=== PATIENT | male | born 1935 | race African-American/Black ===

== ENCOUNTER 2018-02-21 04:08 | Observation (INO) ==
--- NOTE | 2018-02-21 05:51 | ED ---
HPI General Chief Complaint: Seizure Stated Complaint: poss seizure Time Seen by Provider: 02/21/18 05:45 Source: patient and family Mode of arrival: EMS Limitations: no limitations History of Present Illness HPI Narrative: 83-year-old male visiting the area the emergency department by EMS transport from local [facility] where family witnessed him to have a seizure generalized tonic-clonic for approximately 2-3 minutes. Patient is awake at this time reports that he had a remote seizure approximately 10-15 years ago but was not placed on any seizure medications. Patient has heart disease and hypertension denies diabetes. Patient denies any recent illness or fall. Patient reportedly was at the hotel room and grandson noticed him having generalized tonic-clonic seizure activity while he had been sleeping on a nearby couch. There is no bladder or bowel incontinence and no tongue trauma. Patient here voices no concerns or complaints. No headache no visual disturbance no neck pain no chest pain no palpitations no shortness of breath no nausea no vomiting no abdominal pain no flank pain no diarrhea no urinary symptoms and no joint pain or swelling denies any injury. Patient states he has felt well and has not been ill. Patient has not missed any of his blood pressure medications. Patient denies diabetes. MD complaint: seizure Onset (ago): minute(s) Description of Episode: loss of consciousness and tonic-clonic movement Duration of episode: 3 -: minutes(s) Witnessed: yes - by bystander Trauma: No Seizure History: known seizure disorder (x1 15 years ago) Place: other ([facility]) Possible Precipitating Event: none (none known) Associated symptoms: denies other symptoms Treatments prior to arrival: none Related Data Home Medications Medication Instructions Recorded Confirmed No Known Home Medications 02/21/18 02/21/18 Allergies Allergy/AdvReac Type Severity Reaction Status Date / Time No Known Allergies Allergy Unverified 02/21/18 05:46 Review of Systems ROS: all other systems reviewed are negative PMFSH History History Provided By: Patient (CAD [place] hypertension) Medical History Medical History Gout (Acute) Seizure (Acute) Social History Social History Substance History: No History of Abuse Smoking Status: Former smoker Tobacco Type: Cigarettes How Often Do You Have a Drink Containing Alcohol: Monthly or less Recent Travel in [facility] within the Last 8 Weeks: No Recent Out of Country Travel within the Last 8 Weeks: No Immunization History Tetanus Immunization: >5 Years Hx Influenza Vaccine This Season: No Exam Narrative Exam Narrative: GENERAL: Well-developed well-nourished male in no acute distress no respiratory distress; GCS 15 NIHSS:0 SKIN: Focused skin assessment warm/dry. HEAD: Atraumatic. Normocephalic. EYES: Pupils equal and round. No scleral icterus. No injection or drainage. ENT: No nasal bleeding or discharge. Mucous membranes pink and moist. NECK: Trachea midline. No JVD. CARDIOVASCULAR: Regular rate and rhythm. No murmur appreciated. RESPIRATORY: No accessory muscle use. Clear to auscultation. Breath sounds equal bilaterally. GASTROINTESTINAL: Abdomen soft, non-tender, nondistended. Hepatic and splenic margins not palpable. MUSCULOSKELETAL: No obvious deformities. No clubbing. No cyanosis. No edema. NEUROLOGICAL: Awake and alert. No obvious cranial nerve deficits. Motor grossly within normal limits. Normal speech. PSYCHIATRIC: Appropriate mood and affect; insight and judgment normal. Course Initial Documented Vital Signs Temperature 97.8 F 02/21/18 05:22 Pulse Rate 66 02/21/18 05:22 Respiratory Rate 17 02/21/18 05:22 Blood Pressure 177/86 H 02/21/18 05:22 Pulse Oximetry 100 02/21/18 05:22 Last Documented Vital Signs Temperature 97.8 F 02/21/18 05:22 Pulse Rate 61 02/21/18 08:25 Respiratory Rate 16 02/21/18 08:25 Blood Pressure 202/105 H 02/21/18 08:25 Pulse Oximetry 99 02/21/18 08:25 Medical Decision Making [facility] Narrative Medical decision making narrative: 83-year-old male with witnessed generalized tonic-clonic seizure just prior to arrival to the emergency department approximately 2-3 minutes in duration per family that witnessed the event currently patient GCS is 15 reports remote history of seizure 1 approximately 15 years ago. IV access obtained patient placed on cardiac exercise physiologist with continuous pulse oximetry imaging study and labs ordered. Discussed with DR Bautista will accept to OBS Medical Screen Exam Complete: Yes Emergency Medical Condition: Yes Lab Data Result diagrams: 02/21/18 06:11 02/21/18 06:11 Lab Results 02/21/18 02/21/18 02/21/18 Range/Units 06:11 06:11 07:07 WBC 5.2 (4.0-11.0) th/mm3 RBC 4.44 L (4.50-5.90) mil/mm3 Hgb 12.9 L (13.0-17.0) gm/dL Hct 37.9 L (39.0-51.0) % MCV 85.3 (80.0-100.0) fL MCH 29.0 (27.0-34.0) pg MCHC 34.1 (32.0-36.0) % RDW 14.5 (11.6-17.2) % Plt Count 179 (150-450) th/mm3 MPV 9.4 (7.0-11.0) fL Neut % (Auto) 73.3 H (16.0-70.0) % Lymph % (Auto) 18.2 (9.0-44.0) % Baker % (Auto) 5.0 (0.0-8.0) % Eos % (Auto) 2.0 (0.0-4.0) % Baso % (Auto) 1.5 (0.0-2.0) % Neut # (Auto) 3.8 (1.8-7.7) th/mm3 Lymph # (Auto) 1.0 (1.0-4.8) th/mm3 Baker # (Auto) 0.3 (0.0-0.9) th/mm3 Eos # (Auto) 0.1 (0.0-0.4) th/mm3 Baso # (Auto) 0.1 (0.0-0.2) th/mm3 WBC Differential . Differential Comment Auto diff final Sodium 144 (136-145) meq/L Potassium 4.4 (3.5-5.1) meq/L Chloride 108 H (98-107) meq/L Carbon Dioxide 26.7 (21.0-32.0) meq/L Anion Gap 9 (5-15) meq/L BUN 27 H (7-18) mg/dL Creatinine 1.89 H (0.60-1.30) mg/dL Estimated GFR 34 L (>89) mL/min Random Glucose 103 (74-106) mg/dL Calcium 8.3 L (8.5-10.1) mg/dL Magnesium 2.6 H (1.5-2.5) mg/dL Total Bilirubin 0.3 (0.2-1.0) mg/dL AST 12 L (15-37) U/L ALT 11 L (12-78) U/L Alkaline Phosphatase 96 (45-117) U/L Total Protein 7.6 (6.4-8.2) g/dL Albumin 3.5 (3.4-5.0) g/dL Urine Color Straw (Yellw/Straw) Urine Clarity Clear (Clear) Urine pH 7.0 (5.0-8.5) Ur Specific [place] 1.005 (1.002-1.035) Urine Protein Negative (Neg-Trace) mg/dL Urine Glucose (UA) Negative (Negative) mg/dL Urine Ketones Negative (Negative) mg/dL Urine Occult Blood Negative (Negative) Urine Nitrate Negative (Negative) Urine Bilirubin Negative (Negative) Urine Urobilinogen Less than 2 (Less than 2) mg/dL Ur Leukocyte Esterase Negative (Negative) Urine RBC 1 (0-3) /hpf Urine WBC Less than 1 (0-5) /hpf Urine Mucus Few H (Occasional) /lpf Ur Microscopic Review Not Reportable Serum Alcohol Less than 3 (0-5) mg/dL Imaging Data Radiologist's impression: Head CT 02/21/18 05:46 CONCLUSION: 1. No acute intracranial abnormality is identified. 2. Encephalomalacia in the right frontoparietal high convexity likely related to old ischemic event. There is generalized cerebral atrophy. . ECG Data EKG Prior to Arrival: Yes Interpretation: EKG sinus bradycardia rate 59 ventricular bigeminy interventricular conduction delay no acute ST elevation or injury pattern noted. Discharge Plan Discharge Disposition Patient Disposition: 30 Still Patient Discharge Condition Condition: Stable Discharge Details Diagnosis: Seizure Physicians Team ED Provider: Renetta Kevin Primary Care Provider: UNKNOWN, Rxs /Orders / Referrals /Forms Prescriptions: No Action No Known Home Medications RF: 0 Discharge Interventions Interventions: Vital Signs Last Done: 02/21/18 08:25 Status ED Status: With Doctor
[2018-02-21 06:31] LABS: Baso # (Auto) 0.1 th/mm3 (0.0-0.2); Baso % (Auto) 1.5 % (0.0-2.0); Eos # (Auto) 0.1 th/mm3 (0.0-0.4); Hematocrit 37.9 % (39.0-51.0); Hemoglobin 12.9 gm/dL (13.0-17.0); Lymph % (Auto) 18.2 % (9.0-44.0); Mean Corpuscular HGB Conc 34.1 % (32.0-36.0); Mean Corpuscular Volume 85.3 fL (80.0-100.0); Mean Platelet Volume 9.4 fL (7.0-11.0); Mono # (Auto) 0.3 th/mm3 (0.0-0.9); Neut # (Auto) 3.8 th/mm3 (1.8-7.7); Neut % (Auto) 73.3 % (16.0-70.0); Platelet Count 179 th/mm3 (150-450); Red Blood Count 4.44 mil/mm3 (4.50-5.90); Red Cell Distribution Width 14.5 % (11.6-17.2); White Blood Count 5.2 th/mm3 (4.0-11.0)
--- NOTE | 2018-02-21 06:44 | CT ---
EXAM DATE: 02/21/2018 6:38 AM EDT AGE/SEX: 83 years / Male INDICATIONS: Seizure. CLINICAL DATA: This is the patient's initial encounter. Patient reports that signs and symptoms have been present for 1 day and indicates a pain score of 0/10. MEDICAL/SURGICAL HISTORY: Seizures. None. RADIATION DOSE: 56.35 CTDI (mGy) COMPARISON: No prior exams available for comparison. TECHNIQUE: CT of the head without contrast. Using automated exposure control and adjustment of the mA and/or kV according to patient size, radiation dose was kept as low as reasonably achievable to ob tain optimal diagnostic quality images. DICOM format image data is available electronically for revi ew and comparison. FINDINGS: Cerebrum: There is mild generalized atrophy and ventricles are normal given the degree of atrophy. M ild periventricular white matter change is present. Encephalomalacia is present at the right frontopa rietal high convexity. No midline shift, mass lesion, hemorrhage or acute infarction. No extraaxial fluid collections are seen. Posterior Fossa: The cerebellum and brainstem demonstrate no acute abnormality. The 4th ventricle is midline. The cerebellopontine angle is within normal limits. Extracranial: The visualized sinuses are clear. Skull: The calvaria is intact. No skull fracture. CONCLUSION: 1. No acute intracranial abnormality is identified. 2. Encephalomalacia in the right frontoparietal high convexity likely related to old ischemic event. There is generalized cerebral atrophy. . Electronically signed by: Nolberto Mccarthy MD 02/21/2018 6:43 AM EDT
[2018-02-21 06:49] LABS: Alanine Aminotransferase 11 U/L (12-78); Albumin 3.5 g/dL (3.4-5.0); Anion Gap 9 meq/L (5-15); Aspartate Aminotransferase 12 U/L (15-37); Blood Urea Nitrogen 27 mg/dL (7-18); Calcium 8.3 mg/dL (8.5-10.1); Carbon Dioxide 26.7 meq/L (21.0-32.0); Chloride 108 meq/L (98-107); Glomerular Filtration Rate 34 mL/min (>89); Glucose,Random 103 mg/dL (74-106); Magnesium 2.6 mg/dL (1.5-2.5); Potassium 4.4 meq/L (3.5-5.1); Sodium 144 meq/L (136-145)
[2018-02-21 06:51] LABS: Alkaline Phosphatase 96 U/L (45-117); Total Protein 7.6 g/dL (6.4-8.2)
[2018-02-21 07:24] LABS: Bilirubin,Urine Negative (Negative); Color,Urine Straw (Yellw/Straw); Glucose,Urine (UA) Negative (Negative); Leukocyte Esterase,Urine Negative (Negative); Mucus,Urine Few /lpf (Occasional); Nitrite,Urine Negative (Negative); Specific Gravity,Urine 1.005 (1.002-1.035)
[2018-02-21 07:27] LABS: Clarity,Urine Clear (Clear)
--- NOTE | 2018-02-21 08:47 | P.HPIM ---
History of Present Illness Primary Care Physician: UNKNOWN Chief Complaint: seizure History of Present Illness: patient is a 83 y/o male with history of seizure- not on any meds currently, CVA , hypertension, dyslipidemia, who was brought to ER after he had a seizure at home. the family- at the bedside, say that while he was sleeping, he suddenly started to have a tonic-clonic seizure. it was described as ' the whole body was shaking, then he became stiff and his eyes rolled back'. this lasted for a couple of minutes. no urinary incontinence or tongue biting. he says that he had a seizure about eighteen years ago and took some medication for a while but he stooped taking it years ago. Review of Systems All other systems reviewed negative except as stated in HPI PMFSH - History History Provided By: Patient (CAD [place] hypertension) - Medical History Medical History: Medical History (Last Reviewed 02/21/18 @ 11:03 by Deidre Berg) Gout Seizure - Surgical History Surgical History: Surgical History (Last Updated 02/21/18 @ 08:43 by Rome Epstein MD) H/O carotid endarterectomy - Family History Family History: Family History (Last Updated 02/21/18 @ 08:43 by Rome Epstein MD) Other Seizure - Tobacco History Smoking Status: Former smoker Tobacco Type: Cigarettes - Alcohol History How Often Do You Have a Drink Containing Alcohol: Monthly or less - Substance Use History Substance History: No History of Abuse - Travel History Recent Travel in the [place] Within the Last 8 Weeks: No Recent Travel Out of the Country Within the Last 8 Weeks: No - Immunization History Tetanus Immunization: >5 Years Hx Influenza Vaccine This Season: No Medications and Allergies Active Medications: Active Medications Aspirin (Ecotrin) 81 mg PO DAILY MISHA Clonidine HCl (Catapres) 0.2 mg PO DAILY MISHA Heparin Sodium (Porcine) (Heparin Inj) 5,000 units SQ Q12HR MISHA Sodium Chloride (Ns Inj) 1,000 mls @ 75 mls/hr IV.CONT .[id number] MISHA Lorazepam (Ativan Inj) 1 mg IV.PUSH Q15M PRN PRN Reason: seizure Non-Formulary Medication (Amlodipine [Amlodipine]) 2.5 mg PO DAILY MISHA Pravastatin Sodium (Pravachol) 20 mg PO HS MISHA Sodium Chloride (Ns Flush) 2 ml IV.FLUSH PRN PRN PRN Reason: FLUSH AFTER USING IV ACCESS Allergies Allergy/AdvReac Type Severity Reaction Status Date / Time No Known Allergies Allergy Unverified 02/21/18 05:46 Home Medications Medication Instructions Recorded Confirmed Type amlodipine 5 mg PO DAILY 02/21/18 02/21/18 History aspirin [Aspir-Low] 81 mg PO DAILY 02/21/18 02/21/18 History clonidine HCl 0.2 mg PO DAILY 02/21/18 02/21/18 History indomethacin 50 mg PO BID 02/21/18 02/21/18 History pravastatin 20 mg PO HS 02/21/18 02/21/18 History Exam Vital signs: Vital Signs 02/21/18 05:22 02/21/18 05:51 02/21/18 07:15 Temperature 97.8 F Pulse Rate 66 61 Respiratory Rate 17 17 Blood Pressure 177/86 H 169/101 H Pulse Oximetry 100 100 100 02/21/18 08:25 Temperature Pulse Rate 61 Respiratory Rate 16 Blood Pressure 202/105 H Pulse Oximetry 99 Intake & Output 02/20/18 02/21/18 02/21/18 18:59 06:59 18:59 Weight 81.647 kg - Constitutional no acute distress - Routine HEENT Exam Head: Present: normocephalic - Routine Neck Exam Present: full ROM - Routine Respiratory Exam Present: CTA bilaterally - Routine Cardiovascular Exam Present: RRR - Routine Abdominal Exam Present: soft - Routine Extremities Exam Comments: no pedal edema. - Routine Neurological Exam Present: alert, oriented X3 Results - Labs CBC & Chem 7: 02/21/18 06:11 02/21/18 06:11 Labs: Short CBC 02/21/18 Range/Units 06:11 WBC 5.2 (4.0-11.0) th/mm3 Hgb 12.9 L (13.0-17.0) gm/dL Hct 37.9 L (39.0-51.0) % Plt Count 179 (150-450) th/mm3 BMP 02/21/18 06:11 Sodium 144 Potassium 4.4 Chloride 108 H Carbon Dioxide 26.7 BUN 27 H Creatinine 1.89 H Calcium 8.3 L Liver Function 02/21/18 Range/Units 06:11 Total Bilirubin 0.3 (0.2-1.0) mg/dL AST 12 L (15-37) U/L ALT 11 L (12-78) U/L Alkaline Phosphatase 96 (45-117) U/L Albumin 3.5 (3.4-5.0) g/dL Urine 02/21/18 Range/Units 07:07 Urine Color Straw (Yellw/Straw) Urine Clarity Clear (Clear) Urine pH 7.0 (5.0-8.5) Ur Specific [place] 1.005 (1.002-1.035) Urine Protein Negative (Neg-Trace) mg/dL Urine Glucose (UA) Negative (Negative) mg/dL - Imaging Impressions Head CT 02/21/18 05:46 CONCLUSION: 1. No acute intracranial abnormality is identified. 2. Encephalomalacia in the right frontoparietal high convexity likely related to old ischemic event. There is generalized cerebral atrophy. . Caprini VTE Risk Assessment Caprini VTE Risk Assessment: Moderate/High Risk (score >= 2) Caprini Risk Assessment Model: Point Value = 1 Point Value = 2 Point Value = 3 Point Value = 5 Age 41-60 Minor surgery BMI > 25 kg/m2 Swollen legs Varicose veins or History of unexplained or recurrent spontaneous Oral contraceptives or hormone replacement Sepsis (< 1 month) Serious lung disease, including pneumonia (< 1 month) Abnormal pulmonary function Acute myocardial infarction Congestive heart failure (< 1 month) History of inflammatory bowel disease Medical patient at bed rest Age 61-74 Arthroscopic surgery Major open surgery (> 45 min) Laparoscopic surgery (> 45 min) Malignancy Confined to bed (> 72 hours) Immobilizing plaster cast Central venous access Age >= 75 History of VTE Family history of VTE Factor V Leiden Prothrombin [id number] Lupus anticoagulant Anticardiolipin antibodies Elevated serum homocysteine Heparin-induced thrombocytopenia Other congenital or acquired thrombophilia Stroke (< 1 month) Elective arthroplasty Hip, pelvis, or leg fracture Acute spinal cord injury (< 1 month) Prophylaxis Regimen: Total Risk Factor Score Risk Level Prophylaxis Regimen 0-1 Low Early ambulation 2 Moderate Order ONE of the following: *Sequential Compression Device (SCD) *Heparin 5000 units SQ BID 3-4 Higher Order ONE of the following medications: *Heparin 5000 units SQ TID *Enoxaparin/Lovenox 40 mg SQ daily (WT < 150 kg, CrCl > 30 mL/min) *Enoxaparin/Lovenox 30 mg SQ daily (WT < 150 kg, CrCl > 10-29 mL/min) *Enoxaparin/Lovenox 30 mg SQ BID (WT < 150 kg, CrCl > 30 mL/min) AND/OR *Sequential Compression Device (SCD) 5 or more Highest Order ONE of the following medications: *Heparin 5000 units SQ TID (Preferred with Epidurals) *Enoxaparin/Lovenox 40 mg SQ daily (WT < 150 kg, CrCl > 30 mL/min) *Enoxaparin/Lovenox 30 mg SQ daily (WT < 150 kg, CrCl > 10-29 mL/min) *Enoxaparin/Lovenox 30 mg SQ BID (WT < 150 kg, CrCl > 30 mL/min) AND *Sequential Compression Device (SCD) Assessment and Plan - Plan A/P - seizure continue with seizure precautions- Ativan prn- obtain EEG and consult neurology. of note patient has a history of seizure years ago and stopped taking his antiepileptics while back. -hypertension; resume home meds- -reanl insufficiency with unknown duration; start on IV fluid and recheck the renal function tomorrow. -CVA/ dyslipidemia; resume aspirin and statin. -DVT prophylaxis with subq Heparin -consult PT. Discussed Condition With: ER physician, the patient and his family. Discharge Planning: pending neurological w/u and neurology evaluation.
[2018-02-21] MEDS: Sod Chloride 0.9% Inj 1,000 ML IV.CONT SCH (09:34)
[2018-02-21] MEDS: amLODIPine 5 MG Tablet PO SCH (09:35)
[2018-02-21] MEDS: Heparin - SQ 10,000 UNITS/ML Vial SQ SCH ×2 (09:35→21:20)
--- NOTE | 2018-02-21 12:53 | ECG ---
Date Performed: 02/21/2018 Time Performed: 06:36:05 PTAGE: 83 years EKG: SINUS BRADYCARDIA WITH FIRST DEGREE AV BLOCK WITH FREQUENT VENTRICULAR PREMATURE COMPLEXES IN A BIGEMINAL PATTERN MODERATE INTRAVENTRICULAR CONDUCTION DELAY MODERATE T-WAVE ABNORMALITY, CONSID ER ANTEROLATERAL ISCHEMIA Left ventricular hypertrophy with secondary ST-T wave changes. Clinical cor relation would be important as there is no prior tracing for comparison. ABNORMAL ECG NO PREVIOUS TRACING DOCTOR: La Cherry Interpretating Date/Time 02/21/2018 12:53:05
--- NOTE | 2018-02-21 16:36 | MB ---
cc: Clark Albright MD, PhD DATE: 02/21/2018 REASON FOR CONSULTATION: Seizure. HISTORY OF PRESENT ILLNESS: This very pleasant 83-year-old man who had a history of seizures 15 years ago. He was placed on some type of anticonvulsants, but stopped it. 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 He feels back to baseline at the present time. PAST MEDICAL HISTORY: He has a history of stroke in the past seizures, many years ago, PFO according to the patient, gout. MEDICATIONS: Currently are aspirin 81 mg daily, Norvasc 2.5 minutes daily, Catapres, subcutaneous heparin, Ativan p.r.n., Pravachol 20 mg daily. PHYSICAL EXAMINATION: VITAL SIGNS: His blood pressure is 161/111, pulse 60, respirations 17, temperature 97. NEUROLOGIC: His higher cortical function is normal. Cranial nerves intact. Motor exam: No focal deficit is identified. There is no drift. Reflexes are symmetric. IMAGING STUDIES: CT brain: No acute changes. Encephalomalacia right frontoparietal area, probably is old stroke. LABORATORY DATA: White count 5200, hemoglobin 12.9, hematocrit 37.9%, platelet count 179,000. Sodium is 144, potassium 4.4, chloride 108, CO2 26.7. The BUN is 27, creatinine 1.89, GFR is 34, glucose 103. TSH 7.14. Tox screen: Alcohol less than 3. The patient denies alcohol use. IMPRESSION: Recurrent seizure. RECOMMENDATION: MRI brain, EEG. Would recommend starting Keppra 500 mg b.i.d. He should not drive for at least 6 months of being seizure free. Clark Albright MD, PhD EDE/cezar/sky , 03:44 PM , 03:50 PM
[2018-02-22] MEDS: Sod Chloride 0.9% Inj 1,000 ML IV.CONT SCH ×2 (03:01→15:21)
[2018-02-22 07:09] LABS: Calcium 8.8 mg/dL (8.5-10.1); Carbon Dioxide 23.9 meq/L (21.0-32.0); Potassium 4.5 meq/L (3.5-5.1)
[2018-02-22] MEDS ORDERED: Gadobutrol PF 10 MMOL/10 ML Vial (for RAD) IV.SIG ONE (08:30)
--- NOTE | 2018-02-22 09:03 | MR ---
EXAM DATE: 02/22/2018 8:49 AM EDT AGE/SEX: 83 years / Male INDICATIONS: Seizures. CLINICAL DATA: This is the patient's initial encounter. Patient reports that signs and symptoms have been present for 2 days and indicates a pain score of 0/10. MEDICAL/SURGICAL HISTORY: Hypertension. . Bilateral shoulder surgery. [place] [facility] [place]. . TECHNIQUE: Multiplanar, multisequence examination of the brain was performed without and with 8 ml Ga davist (gadobutrol) contrast as a single exam dose. FINDINGS: Cerebrum: Old infarct right parietal lobe. Focal high signal in the amount in the right frontal lobe likely old lacunar infarct. The ventricles are normal for age. No evidence of midline shift, mass l esion, hemorrhage or acute infarction. No extraaxial fluid collections are seen. The pituitary glan d and suprasellar cistern are normal in configuration. White Matter: No significant signal abnormalities are seen in the white matter. Posterior Fossa: The cerebellum and brainstem are intact. The 4th ventricle is midline. The cerebel lopontine angle is unremarkable. The cerebellar tonsils are normal in position. Diffusion Imaging: No focal areas of restricted diffusion are seen. No evidence of acute infarction . Extracranial: The visualized portions of the orbits and paranasal sinuses are unremarkable. Post Contrast: No abnormal areas of parenchymal or dural enhancement. No evidence of blood-brain ba rrier breakdown. CONCLUSION: 1. 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 2. No acute infarction. Electronically signed by: Magno Abdi MD 02/22/2018 9:01 AM EDT
[2018-02-22] MEDS: amLODIPine 5 MG Tablet PO SCH (10:20)
[2018-02-22] MEDS: Heparin - SQ 10,000 UNITS/ML Vial SQ SCH ×2 (10:21→21:32)
--- NOTE | 2018-02-22 14:46 | P.PN ---
Subjective Interval history: follow up for seizure: no seizures overnight, awake, oriented x 3. No cp, no sob. No fever. No acute changes overnight. BP elevated Physical Exam Vital signs: Vital Signs 02/21/18 16:00 02/21/18 19:41 02/21/18 20:00 Temperature 97.9 F 98.4 F Pulse Rate 56 L 62 Respiratory Rate 16 17 Blood Pressure 126/92 H 173/84 H Pulse Oximetry 97 96 96 02/22/18 03:33 02/22/18 07:52 02/22/18 08:30 Temperature 98.4 F 98.7 F Pulse Rate 85 73 Respiratory Rate 17 16 Blood Pressure 176/85 H Pulse Oximetry 94 L 98 98 02/22/18 09:00 02/22/18 12:00 02/22/18 12:44 Temperature 97.5 F L Pulse Rate 73 56 L Respiratory Rate 18 Blood Pressure 230/91 H 150/98 H Pulse Oximetry 97 Intake & Output 02/21/18 02/22/18 02/22/18 18:59 06:59 18:59 Intake Total 895 / 895 1000 / 1000 Balance 895 / 895 1000 / 1000 Weight 81.647 kg Intake: IV 75 / 75 925 / 925 NS Inj 1,000 ML @ 75 mls/hr IV. 75 / 75 925 / 925 CONT .[id number] [facility] Rx#:[id number] Oral 820 / 820 75 / 75 Other: # Voids 3 Date of Last Bowel Movement 02/20/18 02/20/18 Narrative: GENERAL: Well-nourished, well-developed patient in no apparent distress. SKIN: Warm and dry. HEAD: Atraumatic. Normocephalic. EYES: Pupils equal and round. No scleral icterus. No injection or drainage. ENT: No nasal bleeding or discharge. Mucous membranes pink and moist. NECK: Trachea midline. No JVD. CARDIOVASCULAR: Regular rate and rhythm. RESPIRATORY: No accessory muscle use. Clear to auscultation. Breath sounds equal bilaterally. GASTROINTESTINAL: Abdomen soft, non-tender, nondistended. Hepatic and splenic margins not palpable. MUSCULOSKELETAL: Extremities without clubbing, cyanosis, or edema. No obvious deformities. NEUROLOGICAL: Awake and alert and oriented x 3. No obvious cranial nerve deficits. Motor grossly within normal limits. Five out of 5 muscle strength in the arms and legs. Normal speech. PSYCHIATRIC: Appropriate mood and affect; insight and judgment normal. Results - Labs CBC & Chem 7: 02/21/18 06:11 02/22/18 05:57 Laboratory Results - last 24 hr 02/22/18 05:57 Sodium 142 Potassium 4.5 Chloride 108 H Carbon Dioxide 23.9 Anion Gap 10 BUN 25 H Creatinine 1.59 H Estimated GFR 51 L Random Glucose 112 H Calcium 8.8 - Imaging Impressions Head MRI 02/22/18 00:00 CONCLUSION: 1. 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 2. No acute infarction. Assessment and Plan - Assessment (1) Seizure Code(s): R56.9 - Unspecified convulsions Status: Acute (2) History of CVA (cerebrovascular accident) Code(s): Z86.73 - Personal history of transient ischemic attack (TIA), and cerebral infarction without residual deficits Status: Chronic (3) Hyperlipidemia Code(s): E78.5 - Hyperlipidemia, unspecified Status: Chronic - Plan A/P patient is a 83 y/o male with history of seizure- not on any meds currently, CVA , hypertension, dyslipidemia, who was brought to ER after he had a seizure at home. the family- at the bedside, say that while he was sleeping, he suddenly started to have a tonic-clonic seizure. it was described as ' the whole body was shaking, then he became stiff and his eyes rolled back'. this lasted for a couple of minutes. no urinary incontinence or tongue biting. he says that he had a seizure about eighteen years ago and took some medication for a while but he stooped taking it years ago. Seizure History of seizure disorder 15 years ago, stopped taking antiepileptics. -continue with seizure precautions - Ativan prn - EEG pending -appreciate neurology input, recommended Keppra, Brain MRI and EEG -continue Keppra -PT eval Hypertension, BP elevated at times -cont. Clonidine and Norvasc Renal insufficiency with unknown duration -Continue IV fluids -Renal function improved History of CVA -Continue aspirin and statin Dyslipidemia -Continue with statin. DVT prophylaxis with subq Heparin PT consult Symptoms resolved, will f/u on EEG results. If neg. poss dc today or tomorrow. (3) Hyperlipidemia Qualifiers: Hyperlipidemia type: unspecified Qualified Code(s): E78.5 - Hyperlipidemia, unspecified
--- NOTE | 2018-02-22 17:06 | MG ---
cc: Marjorie Otero MD EEG NUMBER: [id number] REFERRING PHYSICIAN: Dr. Epstein. INDICATION: In room with photic only; awake, drowsy. 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 History of witnessed seizure. Also, history of seizures, gout, heart disease on Norvasc and other antihypertensives. background, the patient has mild slowing of 7 Hz, 20-30 microvolts. Currently, he has what looks like some sharp waves. Tech is trying to call his name; not answering. Looks like it is more over the right hemisphere; however. Then, background normalizes, it lasts a short period of time and some mild attenuation of the background. Photic stimulation with mild driving response. IMPRESSION: Abnormal EEG due to some what looks like epileptic discharges over the right hemisphere, may be focus for epileptogenicity. The patient may have actually had a seizure during that one recording portion. Clinical correlation. MD JENA Garcia/gabriela/sky , 03:45 PM , 03:51 PM
--- NOTE | 2018-02-22 18:30 | P.PNNEU ---
Subjective Subjective Comments: no recurrent sz Active Medications: Active Medications Amlodipine Besylate (Norvasc) 2.5 mg PO DAILY [facility] Last Admin: 02/22/18 10:20 Dose: 2.5 mg Amlodipine Besylate (Norvasc) 5 mg PO DAILY [facility] Aspirin (Ecotrin) 81 mg PO DAILY [facility] Last Admin: 02/22/18 10:21 Dose: 81 mg Clonidine HCl (Catapres) 0.2 mg PO DAILY [facility] Enalaprilat (Vasotec Inj) 1.25 mg IV.PUSH Q6H PRN PRN Reason: BLOOD PRESSURE MANAGEMENT Last Admin: 02/22/18 16:44 Dose: 1.25 mg Heparin Sodium (Porcine) (Heparin Inj) 5,000 units SQ Q12HR [facility] Last Admin: 02/22/18 10:21 Dose: 5,000 units Sodium Chloride (Ns Inj) 1,000 mls @ 75 mls/hr IV.CONT .[id number] [facility] Last Admin: 02/22/18 15:21 Dose: 75 mls/hr Levetiracetam (Keppra) 1,000 mg PO BID [facility] Lorazepam (Ativan Inj) 1 mg IV.PUSH Q15M PRN PRN Reason: seizure Miscellaneous (Pill Splitter) 1 each OTHER UNSCH PRN PRN Reason: SEE LABEL COMMENTS Pravastatin Sodium (Pravachol) 20 mg PO [facility] Last Admin: 02/21/18 21:20 Dose: 20 mg Sodium Chloride (Ns Flush) 2 ml IV.FLUSH PRN PRN PRN Reason: FLUSH AFTER USING IV ACCESS Allergies/Adverse Reactions: Allergies Allergy/AdvReac Type Severity Reaction Status Date / Time No Known Allergies Allergy Unverified 02/21/18 05:46 Physical Exam Vital signs: Vital Signs 02/21/18 19:41 02/21/18 20:00 02/22/18 03:33 Temperature 98.4 F 98.4 F Pulse Rate 62 85 Respiratory Rate 17 17 Blood Pressure 173/84 H Pulse Oximetry 96 96 94 L 02/22/18 07:52 02/22/18 08:30 02/22/18 09:00 Temperature 98.7 F Pulse Rate 73 73 Respiratory Rate 16 Blood Pressure 176/85 H Pulse Oximetry 98 98 02/22/18 12:00 02/22/18 12:44 02/22/18 16:00 Temperature 97.5 F L 98.8 F Pulse Rate 56 L 64 Respiratory Rate 18 18 Blood Pressure 230/91 H 150/98 H 206/78 H Pulse Oximetry 97 97 02/22/18 17:16 Temperature Pulse Rate Respiratory Rate Blood Pressure 168/98 H Pulse Oximetry Intake & Output 02/21/18 02/22/18 02/22/18 18:59 06:59 18:59 Intake Total 895 / 895 1000 / 1000 1000 / 1000 Balance 895 / 895 1000 / 1000 1000 / 1000 Weight 81.647 kg Intake: IV 75 / 75 925 / 925 1000 / 1000 NS Inj 1,000 ML @ 75 mls/hr IV. 75 / 75 925 / 925 1000 / 1000 CONT .[id number] [facility] Rx#:[id number] Oral 820 / 820 75 / 75 Other: # Voids 3 Date of Last Bowel Movement 02/20/18 02/20/18 - Routine Neurological Exam alert, speech normal CN normal MOTOR 5/5 BUE Objective Radiology Results: MRI brain--old right hemisphere strokes Laboratory Results - last 24 hr 02/22/18 02/22/18 05:57 05:57 Sodium 142 Potassium 4.5 Chloride 108 H Carbon Dioxide 23.9 Anion Gap 10 BUN 25 H Creatinine 1.59 H Estimated GFR 51 L Random Glucose 112 H Calcium 8.8 Free T4 0.96 Diagnostic Tests: EEG----epileptiform activity right hemisphere Review/Management - Review/Management Plan: keppra 1000 mg bid carotid US Echocardiogram
--- NOTE | 2018-02-22 19:51 | US ---
EXAM DATE: 02/22/2018 7:31 PM EDT AGE/SEX: 83 years / Male INDICATIONS: Cerebrovascular accident. CLINICAL DATA: This is the patient's initial encounter. Patient reports that signs and symptoms have been present for 4 - 6 days and indicates a pain score of 0/10. MEDICAL/SURGICAL HISTORY: . Gout. Seizures. Carotid endarterectomy. COMPARISON: . VELOCITY PARAMETERS: ICA/CCA Ratio: Right 1.0 , Left 0.7 ICA: Right 94 cm/sec, Left 55 cm/sec CCA: Right 95 cm/sec, Left 79 cm/sec ECA: Right 156 cm/sec, Left 38 cm/sec Vertebral: Right 57 cm/sec antegrade, Left 38 cm/sec antegrade FINDINGS: Right Carotid: Mild arteriosclerotic plaque is visualized.The waveforms are within normal limits. Left Carotid: Mild arteriosclerotic plaque is visualized. The waveforms are within normal limits. Other: None. CONCLUSION: 1. Right Internal Carotid Artery: No hemodynamically significant stenosis. 2. Left Internal Carotid Artery: No hemodynamically significant stenosis. Electronically signed by: Lamine Eaton MD 02/22/2018 7:50 PM EDT
[2018-02-22] MEDS ORDERED: amLODIPine 5 MG Tablet PO ONE (21:22)
[2018-02-22] MEDS: levETIRAcetam 500 MG Tablet PO SCH (21:31)
[2018-02-23] MEDS: Sod Chloride 0.9% Inj 1,000 ML IV.CONT SCH ×3 (00:39→15:13)
[2018-02-23] MEDS ORDERED: amLODIPine 5 MG Tablet PO SCH (09:00)
--- NOTE | 2018-02-23 09:11 | P.DCO ---
- Home Health Nursing Order: Medical education, Medication education-adverse effect - Certification I have seen patient Ho Adkins on 02/23/18. My clinical findings support the need for the requested home health care services because: recurrent seizures , advanced age Medication compliance is questionable, Need for psychosocial assistance I certify that my clinical findings support that this patient is homebound because: Need for psychosocial assistance
[2018-02-23] MEDS: amLODIPine 5 MG Tablet PO SCH (10:00)
[2018-02-23] MEDS: levETIRAcetam 500 MG Tablet PO SCH ×2 (10:00→20:12)
[2018-02-23] MEDS: Heparin - SQ 10,000 UNITS/ML Vial SQ SCH ×2 (10:00→20:12)
[2018-02-23 10:40] LABS: Calcium 9.2 mg/dL (8.5-10.1); Carbon Dioxide 24.6 meq/L (21.0-32.0); Potassium 3.9 meq/L (3.5-5.1)
--- NOTE | 2018-02-23 14:41 | ECHRPT ---
Indication: cva/tia CONCLUSIONS Normal left ventricular size. Wall thickness is normal. The left ventricular systolic function is low normal with an estimated ejection fraction in the rang e of 50- 55%. Mitral annular calcification is present. Trace mitral valve regurgitation. Aortic valve sclerosis is present. Mild aortic valve regurgitation. The estimated pulmonary arterial pressure is 22mmHg. BP: / HR: Rhythm: Technical Quality: FINDINGS LEFT VENTRICLE Normal left ventricular size. Wall thickness is normal. The left ventricular systolic function is low normal with an estimated ejection fraction in the rang e of 50- 55%. RIGHT VENTRICLE Normal right ventricular size and systolic function. LEFT ATRIUM The left atrial size is normal. RIGHT ATRIUM The right atrial size is normal. ATRIAL SEPTUM Normal atrial septal thickness without atrial level shunting by limited color doppler interrogation. AORTA The aortic root and proximal ascending aorta are normal in size on limited imaging. MITRAL VALVE Mitral annular calcification is present. Trace mitral valve regurgitation. AORTIC VALVE Aortic valve sclerosis is present. Mild aortic valve regurgitation. TRICUSPID VALVE The estimated pulmonary arterial pressure is 22mmHg. PULMONARY VALVE The pulmonary valve is not well visualized. VESSELS The inferior vena cava is normal in size. PERICARDIUM No pericardial effusion. Dionte Nicole MD, FACC, FSCAI (Electronically Signed) Final Date:23 February 2018 14:40
--- NOTE | 2018-02-23 15:45 | P.PN ---
Subjective Interval history: follow up for seizure: Patient awake, alert oriented 3. During EEG yesterday, patient was noted with possible seizure by tech. Has not had any seizure events overnight. Blood pressure has remained elevated. Patient denies any chest pain, no shortness of breath. Anxious to go home. No family at bedside. Physical Exam Vital signs: Vital Signs 02/22/18 16:00 02/22/18 17:16 02/22/18 20:00 Temperature 98.8 F 98.3 F Pulse Rate 64 65 Respiratory Rate 18 19 Blood Pressure 206/78 H 168/98 H 223/98 H Pulse Oximetry 97 93 L 02/22/18 23:43 02/23/18 04:00 02/23/18 07:33 Temperature 98.2 F 98.1 F 98.3 F Pulse Rate 65 56 L 77 Respiratory Rate 22 22 20 Blood Pressure 139/68 150/65 H 160/77 H Pulse Oximetry 95 91 L 91 L 02/23/18 08:03 02/23/18 11:30 02/23/18 14:27 Temperature 98.8 F Pulse Rate 100 H 76 Respiratory Rate 18 Blood Pressure 160/80 H 181/93 H Pulse Oximetry 96 Intake & Output 02/22/18 02/23/18 02/23/18 18:59 06:59 18:59 Intake Total 1000 / 1000 1000 / 1000 Output Total 800 / 800 Balance 1000 / 1000 200 / 200 Weight 88.3 kg 87.997 kg Intake: IV 1000 / 1000 1000 / 1000 NS Inj 1,000 ML @ 75 mls/hr IV. 1000 / 1000 1000 / 1000 CONT .[id number] [facility] Rx#:[id number] Output: Urine 800 / 800 Other: # Voids 2 3 Date of Last Bowel Movement 02/20/18 02/22/18 # Bowel Movements 1 Narrative: GENERAL: Well-nourished, well-developed patient in no apparent distress. SKIN: Warm and dry. HEAD: Atraumatic. Normocephalic. EYES: Pupils equal and round. No scleral icterus. No injection or drainage. ENT: No nasal bleeding or discharge. Mucous membranes pink and moist. NECK: Trachea midline. No JVD. CARDIOVASCULAR: Regular rate and rhythm. RESPIRATORY: No accessory muscle use. Clear to auscultation. Breath sounds equal bilaterally. GASTROINTESTINAL: Abdomen soft, non-tender, nondistended. Hepatic and splenic margins not palpable. MUSCULOSKELETAL: Extremities without clubbing, cyanosis, or edema. No obvious deformities. NEUROLOGICAL: Awake and alert and oriented x 3. No obvious cranial nerve deficits. Motor grossly within normal limits. Five out of 5 muscle strength in the arms and legs. Normal speech. PSYCHIATRIC: Appropriate mood and affect; insight and judgment normal. Results - Labs CBC & Chem 7: 02/21/18 06:11 02/23/18 09:59 Laboratory Results - last 24 hr 02/22/18 02/23/18 05:57 09:59 Sodium 143 Potassium 3.9 Chloride 109 H Carbon Dioxide 24.6 Anion Gap 9 BUN 27 H Creatinine 1.68 H Estimated GFR 48 L Random Glucose 113 H Calcium 9.2 Free T4 0.96 - Imaging Impressions Carotid Doppler Study 02/22/18 00:00 CONCLUSION: 1. Right Internal Carotid Artery: No hemodynamically significant stenosis. 2. Left Internal Carotid Artery: No hemodynamically significant stenosis. Assessment and Plan - Assessment (1) Seizure Code(s): R56.9 - Unspecified convulsions Status: Acute (2) History of CVA (cerebrovascular accident) Code(s): Z86.73 - Personal history of transient ischemic attack (TIA), and cerebral infarction without residual deficits Status: Chronic (3) Hyperlipidemia Code(s): E78.5 - Hyperlipidemia, unspecified Status: Chronic - Plan A/P patient is a 83 y/o male with history of seizure- not on any meds currently, CVA , hypertension, dyslipidemia, who was brought to ER after he had a seizure at home. the family- at the bedside, say that while he was sleeping, he suddenly started to have a tonic-clonic seizure. it was described as ' the whole body was shaking, then he became stiff and his eyes rolled back'. this lasted for a couple of minutes. no urinary incontinence or tongue biting. he says that he had a seizure about eighteen years ago and took some medication for a while but he stooped taking it years ago. Seizure History of seizure disorder 15 years ago, stopped taking antiepileptics. -continue with seizure precautions - Ativan prn - EEG abnormal, epileptic discharges right hemisphere. -continue Keppra at 1000 milligrams p.o. twice daily -Per neurology, recommended carotid ultrasound and echo Chronic ultrasound normal 2D echo EF 50-55, left atrium normal. -PT eval -Discussed with patient and family, he cannot drive for at least 6 months. He verbalizes understanding. Hypertension, BP elevated at times -cont. Clonidine and Norvasc -Increase Norvasc to 5 mg p.o. daily Will add hydralazine 10 mg p.o. 1 now Renal insufficiency with unknown duration -Okay to discontinue IV fluids, increase p.o. intake -Renal function improved History of CVA -Continue aspirin and statin Dyslipidemia -Continue with statin. DVT prophylaxis with subq Heparin PT consult If blood pressure comes down less than 160, possible discharge later today Case management for discharge planning, arrange home health care for nursing and medication review (3) Hyperlipidemia Qualifiers: Hyperlipidemia type: unspecified Qualified Code(s): E78.5 - Hyperlipidemia, unspecified
[2018-02-23] MEDS ORDERED: hydrALAZINE 10 MG Tablet PO ONE (16:15)
--- NOTE | 2018-02-23 19:32 | P.DS ---
<Keshia Montoya - Last Filed: 02/23/18 19:28> Date of admission: 02/21/18 08:29 Primary care physician: UNKNOWN Attending physician on discharge: Lito Gabriel Anticipated date of discharge: 02/23/18 Brief History from admission: patient is a 83 y/o male with history of seizure- not on any meds currently, CVA , hypertension, dyslipidemia, who was brought to ER after he had a seizure at home. the family- at the bedside, say that while he was sleeping, he suddenly started to have a tonic-clonic seizure. it was described as ' the whole body was shaking, then he became stiff and his eyes rolled back'. this lasted for a couple of minutes. no urinary incontinence or tongue biting. he says that he had a seizure about eighteen years ago and took some medication for a while but he stooped taking it years ago. DS: Diagnosis - Discharge Diagnosis (1) Seizure Status: Acute (2) History of CVA (cerebrovascular accident) Status: Chronic (3) Hyperlipidemia Status: Chronic DS: Medications - Discharge Medications Prescriptions: amlodipine 10 mg PO DAILY 30 Days #30 tab levetiracetam [Keppra] 1,000 mg PO BID 30 Days #120 tab DS: Summary Hospital Course: patient is a 83 y/o male with history of seizure- not on any meds currently, CVA , hypertension, dyslipidemia, who was brought to ER after he had a seizure at home. the family- at the bedside, say that while he was sleeping, he suddenly started to have a tonic-clonic seizure. it was described as ' the whole body was shaking, then he became stiff and his eyes rolled back'. this lasted for a couple of minutes. no urinary incontinence or tongue biting. he says that he had a seizure about eighteen years ago and took some medication for a while but he stooped taking it years ago. Patient admitted with recurrent seizures. Put on seizure precautions. Ativan as needed. EEG was ordered, was found to have normal with epileptic discharges to the right hemisphere. Imaging studies were completed as noted. Neurology evaluated, recommended Keppra thousand milligrams p.o. twice daily. Also recommended carotid ultrasound and echo. Carotid ultrasound was normal. 2D echo show EF 50-55%, left atrium was normal. Physical therapy evaluated patient , no home health care recommended. Discharge plan was discussed with patient's family, patient cannot drive for at least 6 months. Patient was also found with uncontrolled blood pressure, Norvasc causing increased to 10 mg p.o. daily. He was continued on clonidine 0.2 mg p.o. daily. He was given as needed medications. Blood pressure improved to 160s. Patient noted with renal insufficiency, it was unknown duration. He was put on IV fluids, renal function improved. Patient had history of CVA, he was continue on aspirin and statin. Case management was consulted for home health care and nursing. Patient stabilized, had no further seizures. Patient was discharged home in stable condition. - Time Spent with Patient Total time spent providing and/or coordinating discharge services: Greater than 30 minutes - Quality: VTE Deep Vein Thrombosis/Pulmonary Embolism Present on Admission: No Exam Vital signs: Vital Signs 02/22/18 20:00 02/22/18 23:43 02/23/18 04:00 Temperature 98.3 F 98.2 F 98.1 F Pulse Rate 65 65 56 L Respiratory Rate 19 22 22 Blood Pressure 223/98 H 139/68 150/65 H Pulse Oximetry 93 L 95 91 L 02/23/18 07:33 02/23/18 08:03 02/23/18 11:30 Temperature 98.3 F Pulse Rate 77 100 H Respiratory Rate 20 Blood Pressure 160/77 H 160/80 H Pulse Oximetry 91 L 02/23/18 14:27 02/23/18 15:58 02/23/18 18:06 Temperature 98.8 F 98.3 F Pulse Rate 76 70 Respiratory Rate 18 16 Blood Pressure 181/93 H 180/70 H 164/90 H Pulse Oximetry 96 97 Intake & Output 02/23/18 02/23/18 02/24/18 06:59 18:59 06:59 Intake Total 1000 / 1000 500 / 500 Output Total 800 / 800 Balance 200 / 200 500 / 500 Weight 88.3 kg 87.997 kg Intake: IV 1000 / 1000 500 / 500 NS Inj 1,000 ML @ 75 mls/hr IV. 1000 / 1000 500 / 500 CONT .[id number] [facility] Rx#:[id number] Output: Urine 800 / 800 Other: # Voids 3 2 Date of Last Bowel Movement 02/22/18 Results Procedures completed during hospitalization: none Labs on day of discharge: Labs from last 24 hours 02/23/18 09:59 Sodium 143 Potassium 3.9 Chloride 109 H Carbon Dioxide 24.6 Anion Gap 9 BUN 27 H Creatinine 1.68 H Estimated GFR 48 L Random Glucose 113 H Calcium 9.2 - Impressions ITS Impressions Head CT 02/21/18 05:46 CONCLUSION: 1. No acute intracranial abnormality is identified. 2. Encephalomalacia in the right frontoparietal high convexity likely related to old ischemic event. There is generalized cerebral atrophy. . Carotid Doppler Study 02/22/18 00:00 CONCLUSION: 1. Right Internal Carotid Artery: No hemodynamically significant stenosis. 2. Left Internal Carotid Artery: No hemodynamically significant stenosis. Head MRI 02/22/18 00:00 CONCLUSION: 1. 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 2. No acute infarction. <Lito Gabriel - Last Filed: 04/11/18 13:55> Date of admission: 02/21/18 08:29 Primary care physician: UNKNOWN DS: Summary - Time Spent with Patient Total time spent providing and/or coordinating discharge services: Results - Impressions ITS Impressions Head CT 02/21/18 05:46 CONCLUSION: 1. No acute intracranial abnormality is identified. 2. Encephalomalacia in the right frontoparietal high convexity likely related to old ischemic event. There is generalized cerebral atrophy. . Carotid Doppler Study 02/22/18 00:00 CONCLUSION: 1. Right Internal Carotid Artery: No hemodynamically significant stenosis. 2. Left Internal Carotid Artery: No hemodynamically significant stenosis. Head MRI 02/22/18 00:00 CONCLUSION: 1. 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 2. No acute infarction. Discharge Plan - Discharge Order Discharge Orders: Discharge Order (Routine); Ordered 02/23/18 Ordered By: Keshia Montoya - Discharge Details Anticipated Discharge Date: 02/23/18 Discharge Comment: recheck BP, if BP < 160. Ok to dc - Physicians Team Primary Care Provider: UNKNOWN, Attending Provider: Lito Gabriel Other Providers: Clark Albright MD, PhD ; [employer]
[2018-02-23 20:32] VITALS: PULSE 86; RESP 19; TEMP 98.9; O2SAT 98
[2018-02-23 21:02] VITALS: BP 164/72
[2018-02-24] MEDS ORDERED: amLODIPine 10 MG Tablet PO SCH (09:00)
== END 2018-02-23 22:03 | disposition home health service (06) ==
LOC: NEPC 04:08 → NEDA 04:08 → NEPFCDU 11:18
PROVIDERS: ADMIT Hospitalist; ATTEND Hospitalist